=== PATIENT | male | born 1980 | race Caucasian/White ===

== ENCOUNTER 2023-12-03 12:49 | Emergency (ER) | payer SELFPAY ==
--- NOTE | 2023-12-03 12:50 | ECG_ITS ---
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 Measurements Intervals [place] Rate: 61 P: -16 IN: 161 QRS: -4 QRSD: 86 T: -4 QT: 358 QTc: 362 Interpretive Statements SINUS RHYTHM WITH SINUS ARRHYTHMIA INFERIOR MYOCARDIAL INFARCTION , OF INDETERMINATE AGE [40+ ms Q WAVE AND/OR ST/T ABNORMALITY IN II/aVF] No previous ECG available for comparison Electronically Signed On 12-03-2023 18:16:54 CDT by Marcelo Peace M.D. [id number]
--- NOTE | 2023-12-03 12:50 | XR_ITS ---
WS: [id number] Exam: XR chest 1V portable [id number] Date/Time of Exam: 12/03/2023 1:20 PM Reason For Exam: cp No priors. Lungs are clear and fully expanded. Normal cardiomediastinal silhouette and regional bony elements. N o pleural effusions. 2 cm calcified granuloma in the upper RIGHT lung. XR/XR chest 1V portable [id number] IMPRESSION: 1. No acute cardiopulmonary finding.
[2023-12-03 13:03] VITALS: BP 122/74; PULSE 69; RESP 14; TEMP 36.7; O2SAT 100; BMI 20.9
[2023-12-03 13:28] LABS: Basophils # 0.1 10^3/uL (0.0-0.1); Basophils % 0.4 %; Eosinophils # 0.1 10^3/uL (0.0-0.8); Eosinophils % 0.8 %; Hematocrit 43.9 % (37-53); Lymphocytes # 1.8 10^3/uL (0.8-4.8); Lymphocytes % 12.8 %; Mean Corpuscular HGB Conc 34.2 g/dL (30-55); Mean Corpuscular Hemoglobin 30.1 pg (27-33); Mean Corpuscular Volume 88.2 fl (82-101); Mean Platelet Volume 10.6 fL (7.4-10.4); Monocytes # 0.9 10^3/uL (0.2-0.9); Monocytes % 6.4 %; Neutrophils # 11.03 10^3/uL (1.8-7.7); Neutrophils % 79.2 %; Nucleated Red Blood Cells % 0 %; Platelet Count 230 10^3/cmm (157-399); Red Blood Count 4.98 10^6/uL (3.85-5.65); Red Cell Distribution Width 12.1 % (12.1-15.1); White Blood Count 13.92 10^3/uL (3.29-11.43)
[2023-12-03 13:51] LABS: Alanine Aminotransferase 13 U/L (0-41); Albumin Level 4.7 g/dL (3.5-5.2); Alkaline Phosphatase 68 U/L (40-130); Anion Gap 14.2 (5-19); Aspartate Amino Transferase 12 U/L (0-40); Blood Urea Nitrogen 12 mg/dL (6-20); Calcium 9.8 mg/dL (8.5-10.5); Carbon Dioxide 25 mmol/L (22-29); Chloride 105 mmol/L (98-107); Globulin 1.9 g/dL (1.3-4.6); Glomerular Filtration Rate 92.1 mL/min (90-130); Glucose 95 mg/dL (65-115); Lipase 18 U/L (13-60); Osmolality Calculated 290 mOsm/kg (285-295); Potassium 4.2 mmol/L (3.5-5.1); Sodium 140 mmol/L (136-145); Total Bilirubin 0.5 mg/dL (0.15-1.2); Total Protein 6.6 g/dL (6.6-8.7)
[2023-12-03 13:53] LABS: Troponin(5th) Baseline < 6 ng/L (0-15)
--- NOTE | 2023-12-03 14:33 | ECG_ITS ---
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 Measurements Intervals [place] Rate: 49 P: 70 [place]: 161 QRS: 68 QRSD: 88 T: 55 QT: 418 QTc: 380 Interpretive Statements SINUS BRADYCARDIA Compared to ECG 12/03/2023 12:54:59 Sinus rhythm no longer present Sinus arrhythmia no longer present Myocardial infarct finding no longer present Electronically Signed On 12-03-2023 18:18:10 CDT by Marcelo Peace M.D. [id number]
--- NOTE | 2023-12-03 14:33 | CT_ITS ---
WS: [id number] CT HEAD NONCONTRAST HISTORY: weakness TECHNIQUE: Contiguous axial imaging performed through the brain. Bone and soft tissue windows. Sagitt al and coronal reformats reviewed. All CT scans at [facility] use at least one of these dose optimization techniques: automated exposure control; mA and/or kV adjustment per patient size (includ es targeted exams where dose is matched to clinical indication); or iterative reconstruction. DLP: 1154.88 mGy.cm COMPARISON: None available. No acute intracranial hemorrhage, midline shift or mass effect. No atrophy or prior infarcts or herniation. Ventricles: Normal size with no hydrocephalus. Paranasal sinuses: As visualized are clear. Mastoid air cells: Well pneumatized. Calvarium and scalp: Skull is intact with no soft tissue edema or swelling. CT/CT head wo con* [id number] IMPRESSION: Negative head CT.
[2023-12-03 14:42] VITALS: BP 141/84; PULSE 71; RESP 16; O2SAT 98
--- NOTE | 2023-12-03 14:44 | ED_ITS ---
HPI - Weakness 2 General: Chief complaint: Weakness Stated complaint: chest pain, weakness Time Seen by Provider: 12/03/23 14:30 Source: patient Mode of arrival: ambulatory Limitations: no limitations History of Present Illness: 43-year-old male states over the last we ek he has been having some fatigue along with dizziness and chest pain. He states an episode a week ago where he had felt lightheaded and fell to his knees denies passing out denies headache he states his chest pains in the center of his chest is tender to touch. Denies any vomiting or diarrhea no medical history in the past Associated symptoms: Reports chest pain; Denies chills, fever(s), headache(s), nausea or vomiting Review of Systems 2 Const: Reports: fatigue and malaise; Denies: fever(s), chills, body aches or change in appetite ENMT: Denies: throat pain or dental pain Card: Reports: chest pain Resp: Denies: dyspnea GI: Denies: abdominal pain, nausea, vomiting or diarrhea Musc: Denies: neck pain or back pain Skin/Breast: Denies: rash Neuro: Denies: headache(s) Physical Exam 2 Const: COMMON NORMALS: no acute distress, patient oriented x3 and healthy appearing HENMT: COMMON NORMALS: normocephalic and atraumatic HEAD & SCALP: n ormocephalic and atraumatic Eye: COMMON NORMALS: conjunctivae normal CONJUNCTIVA: Yes conjunctivae normal Neck/C-Spine: COMMON NORMALS: full ROM and supple Chest: COMMONS NORMALS: normal inspection of the chest Resp: COMMON NORMALS: normal respiratory effort, No retractions, No use of accessory muscles and clear to auscultation bilaterally AUSCULTATION: clear to auscultation bilaterally Cardio: COMMON NORMALS: regular rate, regular rhythm and No murmurs present (Cardio) RATE: regular rate RHYTHM: regular rhythm Extremity: COMMON NORMALS: normal to inspection and full ROM Neuro: COMMON NORMALS: patient oriented x3, moves all extremities and no focal motor deficits Psych: COMMON NORMALS: mental status grossly normal, Normal thought process present and cooperative THOUGHT PROCESS: Normal thought process present Skin: COMMON NORMALS: no rashes or lesions noted and no wounds GENERAL SKIN EXAM: no rashes or lesions noted Course 2 Vital Signs: Vital signs: Vital Signs Temperature 98.1 F 12/03/23 13:03 Pulse Rate 57 L 12/03/23 15:23 Respiratory Rate 18 12/03/23 15:23 Blood Pressure 121/84 12/03/23 15:23 Pulse Oximetry 98 12/03/23 15:23 Oxygen Delivery Me thod Room Air 12/03/23 15:23 MDM - Weakness Medical Decision Making Patient presents here with generalized weakness with some near syncopal events he is well-appearing here he has no signs of acute coronary syndrome head CT was normal no signs of pulmonary embolism all his electrolytes and thyroid levels are normal he feels improved here he stable for discharge he is to follow-up with PCP will get him a referral he is return if worsening he understands agrees to plan. Medical Records I reviewed the patient's medical records. Lab Data I reviewed the patient's lab results. 12/03/23 13:17 12/03/23 13:17 Radiology Impressions Chest X-Ray 12/03/23 12:50 IMPRESSION: 1. No acute cardiopulmonary finding. Head CT 12/03/23 14:33 IMPRESSION: Negative head CT. Laboratory Results WBC 13.92 10^3/uL (3.29-11.43) H 12/03/23 13:17 RBC 4.98 10^6/uL (3.85-5.65) 12/03/23 13:17 Hgb 15.00 g/dL (11.27-16.99) 12/03/23 13:17 Hct 43.9 % (37-53) 12/03/23 13:17 MCV 88.2 fl (82-101) 12/03/23 13:17 MCH 30.1 pg (27-33) 12/03/23 13:17 MCHC 34.2 g/dL (30-55) 12/03/23 13:17 RDW 12.1 % (12.1-15.1) 12/03/23 13:17 Plt Count 230 10^3/cmm (157-399) 12/03/23 13:17 MPV 10.6 fL (7.4-10.4) H 12/03/23 13:17 Neut % (Auto) 79.2 % 12/03/23 13:17 Lymph % (Auto) 12.8 % 12/03/23 13:17 Mercer % (Auto) 6.4 % 12/03/23 13:17 Eos % (Auto) 0.8 % 12/03/23 13:17 Baso % (Auto) 0.4 % 12/03/23 13:17 Neut # (Auto) 11.03 10^3/uL (1.8-7.7) H 12/03/23 13:17 Lymph # (Auto) 1.8 10^3/uL (0.8-4.8) 12/03/23 13:17 Mercer # (Auto) 0.9 10^3/uL (0.2-0.9) 12/03/23 13:17 Eos # (Auto) 0.1 10^3/uL (0.0-0.8) 12/03/23 13:17 Baso # (Auto) 0.1 10^3/uL (0.0-0.1) 12/03/23 13:17 Nucleated RBC % (auto) 0 % 12/03/23 13:17 Nucleated RBCs # 0.0 /100WBC 12/03/23 13:17 PT 13.40 SECONDS (12.1-14.9) 12/03/23 13:17 INR 1.00 (0.8-1.2) 12/03/23 13:17 Sodium 140 mmol/L (136-145) 12/03/23 13:17 Potassium 4.2 mmol/L (3.5-5.1) 12/03/23 13:17 Chloride 105 mmol/L (98-107) 12/03/23 13:17 Carbon Dioxide 25 mmol/L (22-29) 12/03/23 13:17 Anion Gap 14.2 (5-19) 12/03/23 13:17 BUN 12 mg/dL (6-20) 12/03/23 13:17 Creatinine 0.9 mg/dL (0.7-1.2) 12/03/23 13:17 GFR Calculation 92.1 mL/min (90-130) 12/03/23 13:17 Glucose 95 mg/dL (65-115) 12/03/23 13:17 Calculated Osmolality 290 mOsm/kg (285-295) 12/03/23 13:17 Calcium 9.8 mg/dL (8.5-10.5) 12/03/23 13:17 Total Bilirubin 0.5 mg/dL (0.15-1.2) 12/03/23 13:17 AST 12 U/L (0-40) 12/03/23 13:17 ALT 13 U/L (0-41) 12/03/23 13:17 Alkaline Phosphatase 68 U/L (40-130) 12/03/23 13:17 Troponin T Baseline < 6 ng/L (0-15) 12/03/23 13:17 Troponin T 120 Minute 6.00 ng/L (0-15) 12/03/23 15:22 Delta Troponin T 0.60056 ABS# (0-10) 12/03/23 15:22 Total Protein 6.6 g/dL (6.6-8.7) 12/03/23 13:17 Albumin 4.7 g/dL (3.5-5.2) 12/03/23 13:17 Globulin 1.9 g/dL (1.3-4.6) 12/03/23 13:17 Lipase 18 U/L (13-60) 12/03/23 13:17 TSH 1.13 uIU/mL (0.27-4.20) 12/03/23 13:17 All radiology interpretation(s) finalized by discharge EKG Data EKG 1: I personally reviewed and interpreted this EKG as follows: EKG interpretation date: 12/03/23 EKG interpretation time: 14:33 Interpretation: sinus desi hr [address] or t wave abnormalities qrs 88 qtc 389 Discharge Plan Discharge Patient Disposition: Home Clinical Impression: Generalized weakness, Near syncope Condition: Stable Discharge Orders: Discharge ED (Routine); Ordered 12/03/23 Ordered By: Rigo Piper Discharge Diet: Advance as tolerated Discharge Activity: Resume usual activity Patient Instructions: Weakness (ED) Coding Level of Care Code ED Orthopaedic Nurse for Chg Fwd Related Data Allergies Allergy/AdvReac Type Severity Reaction Status Date / Time amoxicillin Allergy ALGY-Hives Verified 12/03/23 13:06
[2023-12-03 14:47] VITALS: BP 141/84; PULSE 67; RESP 18; O2SAT 99
[2023-12-03 15:18] LABS: Thyroid Stimulating Hormone 1.13 uIU/mL (0.27-4.20)
[2023-12-03] MEDS: sodium chloride 0.9% 1,000 ML 999 ML IV (15:18)
[2023-12-03 15:23] VITALS: BP 121/84; PULSE 57; RESP 18; O2SAT 98
[2023-12-03 15:58] LABS: Troponin 5 2HR Delta 0.00001 ABS# (0-10)
[2023-12-03 17:06] VITALS: BP 133/75; PULSE 51; RESP 12; O2SAT 96
--- NOTE | 2023-12-04 04:36 | DCPLANNER ---
Message sent to Clinics to establish PCP
== END 2023-12-03 17:08 | disposition home or self-care (01) ==
PROVIDERS: Emergency Provider Emergency Medicine
DX: R53.1 Weakness (principal); R55 Syncope and collapse; R00.1 Bradycardia, unspecified
CPT/HCPCS: 36415; 70450; 71045; 80053; 83690; 84443; 84484; 85025; 85610; 93005; 96360; 96361; 99285; J7030

== ENCOUNTER → 2023-12-18 10:45 | Outpatient (BNVA) | payer SELFPAY | PROVIDERS: Visit Provider Nurse Practitioner | DX: R53.1 Weakness (principal) | CPT/HCPCS: 82306; 82607; 82746; 85025 ==